=== PATIENT | female | born 1970 | race Caucasian/White ===

== ENCOUNTER 2017-02-16 15:06 | Outpatient (CLI) ==
--- NOTE | 2017-02-16 15:58 | US ---
Examination: Simpson-scale and color Doppler ultrasonographic evaluation of the thyroid gland performe d in real time. Comparison: None available. Reason for study: Hypothyroidism. FINDINGS: The right thyroid lobe measures approximately 4.32 x 1.81 x 1.69 cm with heterogeneous ap pearing echotexture. In the inferior portion of the right thyroid lobe there is a complex appearing 0.40 x 0.51 x 0.47 cm thyroid nodule. The isthmus measures 0.18 cm. The left thyroid lobe measures approximately 3.38 x 1.31 x 1.31 cm with a heterogeneous appearing ec hotexture. In the superior portion of the left thyroid lobe there is a complex appearing 0.43 x 0.3 1 x 0.45 cm nodule. Impression: 1. Heterogeneous appearing parenchymal echotexture can be seen with thyroiditis and Graves' disease . 2. Sub centimeter thyroid nodules are seen in the inferior right thyroid lobe and superior left thy roid lobe.
== END 2017-02-16 15:07 | disposition home or self-care (01) ==
LOC: RAD 15:06
PROVIDERS: ATTEND Family Medicine
DX: E03.9 Hypothyroidism, unspecified (principal)

== ENCOUNTER 2017-05-20 06:37 | Emergency (ER) ==
[2017-05-20 06:54] VITALS: BP 123/87; TEMP 98.5; BMI 21.4
[2017-05-20] MEDS ORDERED: SODIUM CHLORIDE 1,000 ML IV STA ×2 (07:11)
[2017-05-20] MEDS ORDERED: TORADOL IVP STA (07:11)
[2017-05-20] MEDS ORDERED: ZOFRAN 4 MG/2 ML IVP STA ×2 (07:11→09:25)
[2017-05-20] MEDS ORDERED: DILAUDID 1 MG/ML SYRINGE IVP STA (07:11)
[2017-05-20 07:25] LABS: BASOPHILS % (AUTO) 0.6 % (0.0-3.0); EOSINOPHILS # (AUTO) 0.1 K/ul (0.0-0.7); EOSINOPHILS % (AUTO) 0.9 % (0.0-7.0); HEMATOCRIT 41.8 % (37.0-47.0); HEMOGLOBIN 14.6 g/dl (12.0-16.0); IMMATURE GRANULOCYTE % (AUTO) 0.1 % (0.0-5.0); LYMPHOCYTES # (AUTO) 1.6 K/uL (0.60-3.4); LYMPHOCYTES % (AUTO) 22.9 (10.0-50.0); MEAN CORPUSCULAR HGB CONC 34.9 (31.8-35.4); MEAN CORPUSCULAR VOLUME 85.8 fl (81.0-99.0); MONOCYTES # (AUTO) 0.5 K/uL (0.4-2.0); MONOCYTES % (AUTO) 6.8 (0-10); NEUTROPHILS # (AUTO) 4.8 K/ul (2.0-6.9); NEUTROPHILS % (AUTO) 68.7; PLATELET COUNT 379 10^3/uL (140-440); RED BLOOD COUNT 4.87 10^6/ul (4.20-5.40); WHITE BLOOD COUNT 7.02 K/ul (4.6-10.2)
[2017-05-20] MEDS ORDERED: ATIVAN IVP STA ×2 (07:55→09:25)
--- NOTE | 2017-05-20 07:59 | CT ---
Exam: CT of the brain without intravenous contrast. Comparison: None available. Reason for exam: Headache. FINDINGS: No acute intracranial hemorrhage, mass effect, ventricular dilatation, or territorial inf arction. The quadrigeminal and ambient cisterns are patent. There is no extraaxial fluid collectio n. The calvarium is intact. The paranasal sinuses and mastoid air cells are unopacified. Impression: No acute intracranial findings.
[2017-05-20 08:09] LABS: ALANINE AMINOTRANSFERASE 17 U/L (12-78); ALBUMIN 4.3 g/dL (3.4-5.0); ALBUMIN/GLOBULIN RATIO 1.05; ALKALINE PHOSPHATASE 45 U/L (42-98); ANION GAP 16.3; ASPARTATE AMINO TRANSFERASE 18 U/L (15-37); BLOOD UREA NITROGEN 13 mg/dL (7-18); CALCIUM 9.8 mg/dL (8.2-10.2); CARBON DIOXIDE 32 mmol/L (21-32); CHLORIDE 94 mmol/L (98-107); CREATINE KINASE 60 U/L; CREATININE 0.89 mg/dL (0.60-1.30); GLUCOSE 104 mg/dL (70-110); POTASSIUM 3.3 mmol/L (3.5-5.10); SODIUM 139 mmol/L (136-145); TOTAL PROTEIN 8.4 g/dL (6.4-8.2)
[2017-05-20 08:11] LABS: ERYTHROCYTE SEDIMENTATION RATE 22 mm/hr (0-20); ESR INTERNAL QC INTERNAL QC VALID
[2017-05-20 08:51] LABS: BILIRUBIN,URINE 1+ (NEGATIVE); KETONES,URINE 1+ (NEGATIVE); LEUKOCYTE ESTERASE ,URINE Negative (NEGATIVE); NITRITE,URINE Negative (NEGATIVE); PH,URINE 5.5 (5-9); PROTEIN,URINE Negative (NEGATIVE); URINE, BLOOD Negative (NEGATIVE)
[2017-05-20 08:56] LABS: ADD URINE MICROSCOPIC NO
[2017-05-20 09:04] LABS: FLU INTERNAL QC INTERNAL QC VALID; RAPID FLU A NEGATIVE (NEGATIVE); RAPID FLU B NEGATIVE (NEGATIVE)
[2017-05-20] MEDS ORDERED: PROTONIX IV IVP STA (09:26)
[2017-05-20] MEDS ORDERED: PEPCID IVP STA (09:26)
[2017-05-20] MEDS ORDERED: REGLAN IVP STA (09:26)
[2017-05-20 10:12] LABS: AMYLASE 48 U/L (25-115); LIPASE 20 U/L (8-78)
--- NOTE | 2017-05-20 10:23 | CT ---
Exam: CT of the abdomen pelvis without intravenous contrast. Comparison: None available. Reason for exam: Nausea and constipation. FINDINGS: No pleural effusion, or focal consolidation is seen within the partially imaged lung base s. Operative changes are seen after breast implantation. The liver, spleen, pancreas, and gallbladder appear grossly unremarkable. No hydronephrosis, hydroureter, or nephrolithiasis. No focal small bowel dilatation or transition point. The appendix is not definitively seen. There a re no inflammatory changes seen in the expected location of the appendix. No inflammatory changes a re seen within the mesenteric or pelvic fat. There is no intra-abdominal free air or pelvic free fl uid. There is a moderate to large stool burden seen throughout the colon. No suspicious appearing osteoblastic or osteolytic lesions. Impression: 1. No acute inflammatory findings are seen within the abdomen or pelvis to explain the patient's et iology. 2. Moderate to large stool burden. Imaging findings are consistent with constipation. Report faxed at [id number] hours on 05/20/2017.
[2017-05-20] MEDS ORDERED: MILK OF MAGNESIA PO STA (10:44)
[2017-05-20] MEDS ORDERED: DULCOLAX RC STA (10:44)
--- NOTE | 2017-05-20 11:01 | ED.PDOC ---
General ED Provider: Dr. VAMSI COLLINS-ER Chief Complaint: Headache Stated Complaint: lopez been throwing up this week--im nauseated and i havent had a bm in about a week--headache started a few days ago Time Seen by Physician: 06:40 Mode of Arrival: Walk-In Information Source: Patient Exam Limitations: No limitations Primary Care Provider: VAMSI COLLINS Nursing and Triage Documentation Reviewed and Agree: Yes GI Complaint Exam - Vomiting/Diarrhea Complaint/Exam Onset/Duration: several days Symptoms Are: Still present Episodes of Vomiting over last 24 Hours: 5 Initial Severity: Mild Current Severity: Mild Character of Vomiting: Reports: Non-bilious Aggravating: Reports: None Alleviating: Reports: None Associated Signs and Symptoms: Reports: Cramping. Denies: Dizziness, Light- headedness, Melena, Hematemesis, Fever, Abdominal pain Recent Positive Test: No Use of Oral Contraceptives: No Use of Depoprovera: No Non-GI Risk Factors: Reports: None Surgical Obstruction Risk Factors: Reports: Prior abdominal surgery Abdominal Findings: Present: None Kussmaul Respirations Present: No Differential Diagnoses: Dehydration, Pancreatitis, UTI, Other (constipation) Review of Systems - Review Of Systems Constitutional: Reports: No symptoms Eyes: Reports: No symptoms Ears, Nose, Mouth, Throat: Reports: No symptoms Respiratory: Reports: No symptoms Cardiac: Reports: No symptoms GI: Reports: Constipated, Nausea, Vomiting : Reports: No symptoms Musculoskeletal: Reports: No symptoms Skin: Reports: No symptoms Neurological: Reports: Anxiety Endocrine: Reports: No symptoms Hematologic/Lymphatic: Reports: No symptoms All Other Systems: Reviewed and Negative Past Medical History - Past Medical History Previously Healthy: Yes Endocrine: Reports: Unknown Cardiovascular: Reports: Unknown Respiratory: Reports: Unknown Hematological: Reports: Unknown Gastrointestinal: Reports: Unknown Genitourinary: Reports: Unknown Neuro/Psych: Reports: Unknown Musculoskeletal: Reports: Unknown Cancer: Reports: Unknown Last Menstrual Period: 6 YEARS AGO - Surgical History General Surgical History: Reports: Unknown - Family History Family History: Reports: Unknown - Social History Smoking Status: Never smoker Hx Substance Use: No Alcohol Screening: None Lives: With family - Immunizations Tetanus Shot up to Date: (UNKNOWN) Physical Exam - Physical Exam Appearance: Well-appearing, No pain distress, Well-nourished Pain Distress: Mild Eyes: JACEY ENT: Ears normal Neck: Supple Respiratory: Airway patent Cardiovascular: RRR, Pulses normal, No rub, No murmur GI/: Soft, Nontender, No masses, Bowel sounds normal, No Organomegaly Musculoskeletal: Normal strength, ROM intact, No edema, No calf tenderness Skin: Warm, Dry, Normal color Neurological: Sensation intact, Motor intact, Reflexes intact, Cranial nerves intact, Alert, Oriented Psychiatric: Affect appropriate, Mood appropriate Interpretation - Radiology Interpretation Radiology Interpretation By: Radiologist Radiology Results: Positive Exam Interpreted: CT Scan Re-Evaluation - Re-Evaluation Time of Re-Evaluation: 11:02 Status: Improved Vital Signs Stable: Yes Pain Level: 0 Appearance: NAD Lungs: Clear Skin: Warm and Dry Neuro: Alert and Oriented X3 CV: RRR Critical Care Note - Critical Care Note Total Time (mins): 0 Course - Course Hematology/Chemistry: 05/20/17 07:15 05/20/17 07:15 Orders, Labs, Meds: Lab Review 05/20/17 05/20/17 07:15 08:40 WBC 7.02 RBC 4.87 Hgb 14.6 Hct 41.8 MCV 85.8 MCH 30.0 MCHC 34.9 RDW Coeff of Carla 12.2 Plt Count 379 Immature Gran % (Auto) 0.1 Neut % (Auto) 68.7 Lymph % (Auto) 22.9 [place] % (Auto) 6.8 Eos % (Auto) 0.9 Baso % (Auto) 0.6 Immature Gran # (Auto) 0.0 Neut # 4.8 Lymph # 1.6 [place] # 0.5 Eos # 0.1 Baso # 0.0 ESR 22 H Sodium 139 Potassium 3.3 L Chloride 94 L Carbon Dioxide 32 Anion Gap 16.3 BUN 13 Creatinine 0.89 Estimated GFR (MDRD) 69.00 BUN/Creatinine Ratio 14.60 Glucose 104 Calcium 9.8 Total Bilirubin 0.60 AST 18 ALT 17 Alkaline Phosphatase 45 Total Creatine Kinase 60 Troponin I < 0.0100 Total Protein 8.4 H Albumin 4.3 Globulin 4.1 Albumin/Globulin Ratio 1.05 Amylase 48 Lipase 20 TSH 2.454 Free T4 1.46 H Urine Color Yellow Urine Clarity Clear Urine pH 5.5 Ur Specific [place] 1.020 Urine Protein Negative Urine Glucose (UA) Negative Urine Ketones 1+ Urine Blood Negative Urine Nitrite Negative Urine Bilirubin 1+ Urine Urobilinogen 0.2 Ur Leukocyte Esterase Negative Influenza A (Rapid) Negative Influenza B (Rapid) Negative Orders Category Date Time Status EKG-(ED ONLY) Stat CARDIO 05/20/17 09:54 Completed IV [ED IV/MEDIPORT/POWERPORT] .ONCE EMERGENCY 05/20/17 07:10 Active AMYLASE Stat LAB 05/20/17 07:15 Completed CBC W/ AUTO DIFF Stat LAB 05/20/17 07:15 Completed COMPREHENSIVE METABOLIC PANEL Stat LAB 05/20/17 07:15 Completed CREATINE KINASE Stat LAB 05/20/17 07:15 Completed ESR Stat LAB 05/20/17 07:15 Completed FREE T4 (FREE THYROXINE) Stat LAB 05/20/17 07:15 Completed LIPASE Stat LAB 05/20/17 07:15 Completed MOLECULAR GROUP A STREP Stat LAB 05/20/17 08:40 Results RAPID FLU A/B Stat LAB 05/20/17 08:40 Completed STREP SCREEN Stat LAB 05/20/17 08:40 Results TROPONIN I Stat LAB 05/20/17 07:15 Completed TSH [THYROID STIMULATING HORMONE] Stat LAB 05/20/17 07:15 Completed UA [URINALYSIS C & S IF INDICATED] Stat LAB 05/20/17 08:40 Completed 0.9 % Sodium Chloride [Saline Flush] MEDS 05/20/17 07:10 Discontinued 1 syr IVF PRN PRN Bisacodyl [Dulcolax] MEDS 05/20/17 10:44 Discontinued 10 mg RC ONCE STA Famotidine Inj [Pepcid] MEDS 05/20/17 09:26 Discontinued 40 mg IVP ONCE STA Hydromorphone HCl [Dilaudid 1 mg/ml Syringe] MEDS 05/20/17 07:11 Discontinued 1 mg IVP ONCE STA Ketorolac Tromethamine [Toradol] MEDS 05/20/17 07:11 Discontinued 30 mg IVP ONCE STA Lorazepam Inj [Ativan] MEDS 05/20/17 07:55 Discontinued 1 mg IVP ONCE STA Lorazepam Inj [Ativan] MEDS 05/20/17 09:25 Discontinued 1 mg IVP ONCE STA Magnesium Hydroxide [Milk of Magnesia] MEDS 05/20/17 10:44 Discontinued 30 ml PO ONCE STA Metoclopramide HCl [Reglan] MEDS 05/20/17 09:26 Discontinued 5 mg IVP ONCE STA Ondansetron HCl/Pf [Zofran 4 mg/2 ml] MEDS 05/20/17 07:11 Discontinued 4 mg IVP ONCE STA Ondansetron HCl/Pf [Zofran 4 mg/2 ml] MEDS 05/20/17 09:25 Discontinued 4 mg IVP ONCE STA Pantoprazole Sodium [Protonix IV] MEDS 05/20/17 09:26 Discontinued 40 mg IVP ONCE STA Sodium Chloride 0.9% [Sodium Chloride] 1,000 ml MEDS 05/20/17 07:11 Discontinued IV 1,200 mls/hr Sodium Chloride 0.9% [Sodium Chloride] 1,000 ml MEDS 05/20/17 07:11 Discontinued IV 100 mls/hr CT ABDOMEN/PELVIS WO CONTRAST Stat RADS 05/20/17 09:[address] HEAD W/O CONTRAST Stat RADS 05/20/17 07:11 Completed Medications Discontinued Medications Generic Name Dose Route Start Last Admin Trade Name Freq PRN Reason Stop Dose Admin Bisacodyl 10 mg 05/20/17 10:44 05/20/17 10:56 Dulcolax RC 05/20/17 10:45 10 mg ONCE STA Administration Famotidine 40 mg 05/20/17 09:26 05/20/17 09:55 Pepcid IVP 05/20/17 09:27 40 mg ONCE STA Administration Hydromorphone HCl 1 mg 05/20/17 07:11 05/20/17 07:33 Dilaudid 1 Mg/Ml Syringe IVP 05/20/17 07:12 1 mg ONCE STA Administration Sodium Chloride 1,000 mls @ 100 mls/hr 05/20/17 07:11 05/20/17 08:07 Sodium Chloride IV 05/20/17 17:10 Not Given .Q10H STA Sodium Chloride 1,000 mls @ 1,200 mls/hr 05/20/17 07:11 05/20/17 11:03 Sodium Chloride IV 05/20/17 08:00 1,200 mls/hr .Q50M STA Administration Ketorolac Tromethamine 30 mg 05/20/17 07:11 05/20/17 07:31 Toradol IVP 05/20/17 07:12 30 mg ONCE STA Administration Lorazepam 1 mg 05/20/17 07:55 05/20/17 08:06 Ativan IVP 05/20/17 07:56 1 mg ONCE STA Administration Lorazepam 1 mg 05/20/17 09:25 05/20/17 09:51 Ativan IVP 05/20/17 09:26 1 mg ONCE STA Administration Magnesium Hydroxide 30 ml 05/20/17 10:44 05/20/17 10:55 Milk Of Magnesia PO 05/20/17 10:45 30 ml ONCE STA Administration Metoclopramide HCl 5 mg 05/20/17 09:26 05/20/17 09:55 Reglan IVP 05/20/17 09:27 5 mg ONCE STA Administration Ondansetron HCl 4 mg 05/20/17 07:11 05/20/17 07:27 Zofran 4 Mg/2 Ml IVP 05/20/17 07:12 4 mg ONCE STA Administration Ondansetron HCl 4 mg 05/20/17 09:25 05/20/17 10:04 Zofran 4 Mg/2 Ml IVP 05/20/17 09:26 4 mg ONCE STA Administration Pantoprazole Sodium 40 mg 05/20/17 09:26 05/20/17 09:54 Protonix Iv IVP 05/20/17 09:27 40 mg ONCE STA Administration Sodium Chloride 1 syr 05/20/17 07:10 05/20/17 07:34 Saline Flush IVF 1 syr PRN PRN Administration To flush IV Vital Signs: Temp Pulse Resp BP Pulse Ox 05/20/17 06:38 98.5 F 88 20 123/87 96 Departure - Departure Time of Disposition: 11:02 Disposition: HOME SELF-CARE Discharge Problem: Constipation Qualifiers: Constipation type: unspecified constipation type Qualifier Code: (K59.00) Constipation, unspecified Instructions: Constipation (ED) Condition: Good Pt referred to PMD for follow-up: Yes Additional Instructions: encouraged bm every day===zofran 8mg q 8hrs...keep hydate--protonix 40mg q daily ---see me tomorrow for recheck Allergies/Adverse Reactions: Allergies prochlorperazine [From Compazine] Adverse Reaction (Verified 05/20/17 06:54) promethazine [From Phenergan] Adverse Reaction (Verified 05/20/17 06:54) MUSCLES "FREEZE UP" Home Medications: Ambulatory Orders 1 [Unobtainable] 05/20/17 Disposition Discussed With: Patient, Family
== END 2017-05-20 12:00 | disposition home or self-care (01) ==
LOC: ED 06:37
DX: K59.00 Constipation, unspecified (principal); R11.2 Nausea with vomiting, unspecified; R51 Headache
CPT/HCPCS: 36415; 80053; 81001; 82150; 82550; 83690; 84439; 84443; 84484; 85025; 85651; 87651; 87804; 87880; 93005; 93010; 96361; 96365; 96375; 96376; 99283